=== PATIENT | female | born 1985 | race Caucasian/White ===

== ENCOUNTER → 2018-02-03 | Outpatient (CLI) | payer OTHER ==
[~2018-02-03] MED LIST: ALBU8.5H5 INH; ALLERGY PILL PO; ALPR1TAB2 PO; BETA15CR5 TP; CEPH-368 PO; CETI10CA PO; DIVA500T2 PO; FLUT1BLS INH; IBUP-1222 PO; LITH450T PO; MOME13HF INH; MUPI15CR TP; ONDA4TAB7 PO; PHEN37.53 PO; SUMA100T3 PO; TERB250T3 PO; TRIAMCINOLONE 0.1% TP
[2018-02-03 13:40] LABS: MICROSCOPIC NOT IND
[2018-02-03 13:44] LABS: BASOPHILS # (AUTO) 0.06 x10^3/uL (0-0.1); BASOPHILS % (AUTO) 0 % (0-1); EOSINOPHILS # (AUTO) 0.44 x10^3/uL (0-0.4); EOSINOPHILS % (AUTO) 3 % (1-7); LYMPHOCYTES # (AUTO) 3.45 x10^3/uL (1-3.4); LYMPHOCYTES % (AUTO) 25 % (22-44); MD NO; MEAN CORPUSCULAR HEMOGLOBIN 30.5 pg (27.0-34.8); MEAN CORPUSCULAR HGB CONC 33.8 g/dL (32.4-35.8); MEAN CORPUSCULAR VOLUME 90.2 fL (80-100); MEAN PLATELET VOLUME 8.7 fL (7.4-10.4); MONOCYTES # (AUTO) 1.28 x10^3/uL (0.2-0.8); MONOCYTES % (AUTO) 9 % (2-9); NEUTROPHILS # (AUTO) 8.78 x10^3/uL (1.8-6.8); NEUTROPHILS % (AUTO) 63 % (42-75); PLATELET COUNT 306 x10^3/uL (130-400); RED BLOOD COUNT 4.65 x10^6/uL (3.82-5.3); RED CELL DISTRIBUTION WIDTH 13.8 % (9.6-15.2)
[2018-02-03 13:46] LABS: CULTURE INDICATED? NO
== END | disposition home or self-care (01) ==
LOC: STAR 12:42
PROVIDERS: ATTEND Obstetrics & Gynecology Maternal & Fetal Medicine
DX: Z01.818 Encounter for other preprocedural examination (principal); R10.2 Pelvic and perineal pain
CPT/HCPCS: 36415; 81003; 84703; 85025

== ENCOUNTER 2018-02-16 13:13 | Day surgery (SDC) | payer OTHER ==
[~2018-02-16] VITALS: Ht 162.6 cm; Wt 117.6 kg
[~2018-02-16 13:13] MED LIST changes: +BUPIVACAINE 0.25% ONE; +EPINEPHRINE 1 MG/ML, 1ML ONE; +INDIGO CARMINE 0.8%, 5ML ONE; +KETOROLAC 30 MG/1 ML ONE; +SUCCINYLCHOLINE 20 MG/ML, 10ML ONE
[2018-02-16 13:51] VITALS: BP 120/86
[2018-02-16] MEDS ORDERED: LACTATED RINGERS 1,000 ML IV SCH (13:57)
[2018-02-16] MEDS ORDERED: NEOSPORIN OINT, 15GM ONE (14:06)
[2018-02-16] MEDS ORDERED: EPINEPHRINE 1 MG/ML, 1ML ONE (14:06)
[2018-02-16] MEDS ORDERED: BUPIVACAINE 0.25% ONE (14:06)
[2018-02-16 14:54] LABS: HCG UR SG 1.024 (1.003-1.030)
[2018-02-16] MEDS ORDERED: OXYcodone 5 MG/5 ML ORAL.SOL UDC PO PRN (15:30)
[2018-02-16] MEDS ORDERED: MIDAZOLAM 1 MG/ML, 2ML IV PRN (15:30)
[2018-02-16] MEDS ORDERED: SCOPOLAMINE PATCH, 1.5MG PATCH.TD72 TD PRN (15:30)
[2018-02-16] MEDS ORDERED: HYDROmorphone 1 MG/ML, 1ML IV PRN (15:30)
[2018-02-16] MEDS ORDERED: LABETALOL 5MG/ML, 20ML IV PRN (15:30)
[2018-02-16] MEDS ORDERED: ALBUTEROL/IPRATROPIUM 2.5MG/0.5MG, 3 ML NPPB PRN (15:30)
[2018-02-16] MEDS ORDERED: PROMETHAZINE 25 MG SUPP PR PRN (15:30)
[2018-02-16] MEDS ORDERED: ACETAMINOPHEN 325 MG TABLET PO PRN (15:30)
[2018-02-16] MEDS ORDERED: FENTANYL PF 100 MCG/2ML IV PRN (15:30)
[2018-02-16] MEDS ORDERED: FENTANYL PF 250 MCG/5ML ONE (15:36)
[2018-02-16] MEDS ORDERED: MIDAZOLAM 1 MG/ML, 2ML ONE (15:36)
[2018-02-16] MEDS ORDERED: SUGAMMADEX 200 MG/2 ML IVPush ONE (16:15)
[2018-02-16] MEDS ORDERED: CEFAZOLIN 1,000 MG ONE (16:17)
[2018-02-16] MEDS ORDERED: PROPOFOL 10 MG/ML, 20ML ONE (16:17)
[2018-02-16] MEDS ORDERED: SUCCINYLCHOLINE 20 MG/ML, 10ML ONE (16:17)
[2018-02-16] MEDS ORDERED: DEXAMETHASONE 4 MG/ML, 1ML ONE (16:17)
[2018-02-16] MEDS ORDERED: ONDANSETRON 2MG/ML, 2ML ONE (16:17)
[2018-02-16] MEDS ORDERED: ROCURONIUM 10MG/ML,5ML ONE (16:17)
== END 2018-02-16 18:15 | disposition home or self-care (01) ==
LOC: OR 13:13
PROVIDERS: ATTEND Obstetrics & Gynecology Maternal & Fetal Medicine
DX: L72.8 Other follicular cysts of the skin and subcutaneous tissue (principal); N73.9 Female pelvic inflammatory disease, unspecified; F32.9 Major depressive disorder, single episode, unspecified; J45.909 Unspecified asthma, uncomplicated; I10 Essential (primary) hypertension; I25.10 Atherosclerotic heart disease of native coronary artery without angina pectoris; Z88.1 Allergy status to other antibiotic agents
CPT/HCPCS: 49320; 81025; 87070; 87075; 87077; 87205; 88304; J0171; J0330; J0690; J1100; J1885; J2250; J2405; J2704; J3010; J3490; J7120

== ENCOUNTER → 2018-03-30 | Outpatient (CLI) | payer OTHER ==
[~2018-03-30] MED LIST changes: -BUPIVACAINE 0.25% ONE; -EPINEPHRINE 1 MG/ML, 1ML ONE; +ESCI10TA PO; -INDIGO CARMINE 0.8%, 5ML ONE; -KETOROLAC 30 MG/1 ML ONE; +RISP2TAB3 PO; -SUCCINYLCHOLINE 20 MG/ML, 10ML ONE
[2018-03-30 16:28] LABS: MICROSCOPIC INDICATED
[2018-03-30 16:34] LABS: MEAN CORPUSCULAR HEMOGLOBIN 30.3 pg (27.0-34.8); MEAN CORPUSCULAR HGB CONC 33.7 g/dL (32.4-35.8); MEAN PLATELET VOLUME 8.6 fL (7.4-10.4); PLATELET COUNT 295 x10^3/uL (130-400); RED BLOOD COUNT 4.28 x10^6/uL (3.82-5.3); RED CELL DISTRIBUTION WIDTH 13.9 % (9.6-15.2)
[2018-03-30 16:41] LABS: CULTURE INDICATED? NO
[2018-03-30 17:23] LABS: BASOPHILS # (AUTO) 0.04 x10^3/uL (0-0.1); BASOPHILS % (AUTO) 0 % (0-1); EOSINOPHILS # (AUTO) 0.32 x10^3/uL (0-0.4); EOSINOPHILS % (AUTO) 3 % (1-7); LYMPHOCYTES % (AUTO) 25 % (22-44); MD SCAN; MONOCYTES % (AUTO) 12 % (2-9); NEUTROPHILS # (AUTO) 7.92 x10^3/uL (1.8-6.8); NEUTROPHILS % (AUTO) 61 % (42-75)
== END | disposition home or self-care (01) ==
LOC: STAR 15:33
PROVIDERS: ATTEND Obstetrics & Gynecology Maternal & Fetal Medicine
DX: Z01.818 Encounter for other preprocedural examination (principal); N80.9 Endometriosis, unspecified; R10.2 Pelvic and perineal pain
CPT/HCPCS: 36415; 81001; 84146; 84443; 84703; 85025

== ENCOUNTER → 2020-03-06 | Outpatient (CLI) | payer OTHER | END | disposition home or self-care (01) | LOC: CARD 08:31 | PROVIDERS: ATTEND Nurse Practitioner Family | DX: G40.A09 Absence epileptic syndrome, not intractable, without status epilepticus (principal) | CPT/HCPCS: 95819 ==

== ENCOUNTER 2020-10-24 00:34 | Outpatient (CLI) | payer SELFPAY ==
[~2020-10-24] VITALS: Ht 162.6 cm; Wt 138.0 kg
[~2020-10-24 00:34] MED LIST changes: -ESCI10TA PO; +ESCI10TA97 PO; -RISP2TAB3 PO; +RISP2TAB80 PO
[2020-10-24 01:10] VITALS: BP 115/58
[2020-10-24 01:55] LABS: MICROSCOPIC INDICATED
[2020-10-24 02:22] LABS: AMPHETAMINE SCREEN, URINE Negative (Negative); BARBITURATE SCREEN, URINE Negative (Negative); BENZODIAZEPINE SCREEN, URINE Negative (Negative); CANNABINOID SCREEN, URINE Positive (Negative); COCAINE SCREEN, URINE Negative (Negative); METHADONE SCREEN, URINE Negative (Negative); OPIATE SCREEN, URINE Negative (Negative)
== END 2020-10-24 02:18 | disposition home or self-care (01) ==
LOC: LDOP 00:34
PROVIDERS: ATTEND Obstetrics & Gynecology Maternal & Fetal Medicine
DX: O62.9 Abnormality of forces of labor, unspecified (principal); Z3A.30 30 weeks gestation of pregnancy
CPT/HCPCS: 59025; 80307; 81001; 87086

== ENCOUNTER 2020-11-26 07:01 | Outpatient (CLI) | payer MEDICAID ==
[~2020-11-26] VITALS: Ht 157.5 cm; Wt 140.6 kg
[2020-11-26 07:58] VITALS: BP 138/84
== END 2020-11-26 09:20 | disposition home or self-care (01) ==
LOC: LDOP 07:01
PROVIDERS: ATTEND Obstetrics & Gynecology Maternal & Fetal Medicine
DX: O36.8130 Decreased fetal movements, third trimester, not applicable or unspecified (principal); Z3A.35 35 weeks gestation of pregnancy
CPT/HCPCS: 59025; 76819

== ENCOUNTER 2020-12-12 10:52 | Outpatient (CLI) | payer OTHER ==
[~2020-12-12] VITALS: Ht 162.6 cm; Wt 143.2 kg
[2020-12-12 11:22] VITALS: BP 117/64
[2020-12-12 11:36] LABS: AMPHETAMINE SCREEN, URINE Negative (Negative); BARBITURATE SCREEN, URINE Negative (Negative); BENZODIAZEPINE SCREEN, URINE Negative (Negative); CANNABINOID SCREEN, URINE Positive (Negative); COCAINE SCREEN, URINE Negative (Negative); METHADONE SCREEN, URINE Negative (Negative); OPIATE SCREEN, URINE Negative (Negative)
[2020-12-12 11:50] LABS: MICROSCOPIC INDICATED
== END 2020-12-12 13:13 | disposition home or self-care (01) ==
LOC: LDOP 10:52
PROVIDERS: ATTEND Obstetrics & Gynecology Maternal & Fetal Medicine
DX: O62.9 Abnormality of forces of labor, unspecified (principal); Z3A.37 37 weeks gestation of pregnancy; Z90.49 Acquired absence of other specified parts of digestive tract
CPT/HCPCS: 59025; 80307; 81001; 87086

== ENCOUNTER 2020-12-24 20:17 | Inpatient (IN) | payer OTHER ==
[~2020-12-24] VITALS: Ht 162.6 cm; Wt 143.2 kg
[2020-12-25] MEDS ORDERED: TERBUTALINE 1 MG/ML, 1ML IVPush PRN (15:30)
[2020-12-25] MEDS ORDERED: ALUMINUM/MAG/SIMETHICONE 30 ML UDC PO PRN (15:30)
[2020-12-25] MEDS ORDERED: PENICILLIN GK 5,000,000 UNITS in DEXTROSE 5% 100 ML IVPB ONE (15:30)
[2020-12-25] MEDS ORDERED: FENTANYL PF 100 MCG/2ML IV PRN (15:30)
[2020-12-25] MEDS ORDERED: ONDANSETRON 2MG/ML, 2ML IVPush PRN (15:30)
[2020-12-25] MEDS ORDERED: TERBUTALINE 1 MG/ML, 1ML SQ PRN (15:30)
[2020-12-25] MEDS ORDERED: OXYTOCIN 30U/ 0.9% NaCL 500ML 500 ML IV ONE (15:30)
[2020-12-25 15:46] LABS: BASOPHILS % (AUTO) 1 % (0-1); EOSINOPHILS % (AUTO) 1 % (1-7); LYMPHOCYTES % (AUTO) 12 % (22-44); MEAN CORPUSCULAR HEMOGLOBIN 28.4 pg (27.0-34.8); MEAN CORPUSCULAR HGB CONC 32.8 g/dL (32.4-35.8); MEAN PLATELET VOLUME 8.9 fL (7.4-10.4); MONOCYTES % (AUTO) 8 % (2-9); NEUTROPHILS % (AUTO) 79 % (42-75); PLATELET COUNT 296 x10^3/uL (130-400); RED BLOOD COUNT 4.05 x10^6/uL (3.82-5.3); RED CELL DISTRIBUTION WIDTH 14.7 % (9.6-15.2)
[2020-12-25] MEDS ORDERED: NEWBORN KIT ONE (16:57)
[2020-12-25 17:40] LABS: AMPHETAMINE SCREEN, URINE Negative (Negative); BARBITURATE SCREEN, URINE Negative (Negative); BENZODIAZEPINE SCREEN, URINE Negative (Negative); CANNABINOID SCREEN, URINE Positive (Negative); COCAINE SCREEN, URINE Negative (Negative); METHADONE SCREEN, URINE Negative (Negative); OPIATE SCREEN, URINE Negative (Negative)
[2020-12-25] MEDS ORDERED: MISOPROSTOL 25 MCG TABLET ONE (17:58)
[2020-12-25] MEDS ORDERED: MISOPROSTOL 25 MCG TABLET VG PRN (18:30)
[2020-12-25] MEDS: LACTATED RINGERS 1,000 ML IV SCH (22:40)
[2020-12-26] MEDS: FENTANYL PF 100 MCG/2ML IVPush PRN ×2 (01:46→02:51)
[2020-12-26] MEDS: PENICILLIN GK 2,500,000 UNITS in DEXTROSE 5% 100 ML IVPB SCH ×2 (03:15→08:14)
[2020-12-26] MEDS: LACTATED RINGERS 1,000 ML IV SCH (03:45)
[2020-12-26] MEDS ORDERED: FENTANYL/BUPIV./NS/PF 250 ML EPIDCONT ONE (04:42)
[2020-12-26] MEDS ORDERED: EPHEDRINE 50 MG/ML, 1ML IVPush PRN (05:30)
[2020-12-26] MEDS ORDERED: LACTATED RINGERS 1,000 ML IVBOLUS PRN (05:30)
[2020-12-26] MEDS ORDERED: NALOXONE 0.4 MG/ML, 1ML IVPush PRN (05:30)
[2020-12-26] MEDS ORDERED: LACTATED RINGERS 1,000 ML IV SCH (05:30)
[2020-12-26] MEDS ORDERED: FENTANYL/BUPIV./NS/PF 250 ML EPIDCONT SCH (05:30)
[2020-12-26 07:30] VITALS: BP 136/80
[2020-12-26] MEDS ORDERED: OXYTOCIN 30U/ 0.9% NaCL 500ML 500 ML IV PRN (09:30)
[2020-12-26] MEDS ORDERED: BUPIVACAINE 0.25% ONE (10:00)
[2020-12-26] MEDS: OXYTOCIN 30U/ 0.9% NaCL 500ML 500 ML IV SCH ×2 (11:50→13:00)
[2020-12-26] MEDS: IBUPROFEN 600 MG TABLET PO PRN ×2 (12:40→19:30)
[2020-12-26] MEDS ORDERED: IBUPROFEN 600 MG TABLET ONE (12:49)
[2020-12-26 13:09] LABS: ALANINE AMINOTRANSFERASE 22 U/L (12-78); ALBUMIN 2.3 g/dL (3.4-5.0); ANION GAP 6 mmol/L (5-15); CALCIUM 8.9 mg/dL (8.5-10.1); CHLORIDE 109 mmol/L (98-107)
[2020-12-26 13:11] LABS: ALKALINE PHOSPHATASE 154 U/L (45-117); BILIRUBIN,TOTAL 0.3 mg/dL (0.2-1.0); TOTAL PROTEIN 6.8 g/dL (6.4-8.2)
[2020-12-26 14:12] LABS: CREATININE,URINE RANDOM 79.1 mg/dL
[2020-12-26 14:30] VITALS: BP 139/82
[2020-12-26] MEDS ORDERED: CALCIUM CARBONATE 500 MG TAB.CHEW PO PRN (15:00)
[2020-12-26] MEDS ORDERED: SIMETHICONE 80 MG CHEW TAB PO PRN (15:00)
[2020-12-26] MEDS ORDERED: OXYcodone/APAP 5/325MG TABLET PO PRN ×2 (15:00)
[2020-12-26] MEDS ORDERED: MISOPROSTOL 200 MCG TABLET PR PRN (15:00)
[2020-12-26 19:20] VITALS: BP 111/72
[2020-12-26] MEDS: DOCUSATE 100 MG CAPSULE PO PRN (19:30)
[2020-12-26 20:31] LABS: MEAN CORPUSCULAR HEMOGLOBIN 28.7 pg (27.0-34.8); MEAN CORPUSCULAR HGB CONC 33.1 g/dL (32.4-35.8); MEAN PLATELET VOLUME 8.9 fL (7.4-10.4); PLATELET COUNT 247 x10^3/uL (130-400); RED CELL DISTRIBUTION WIDTH 14.6 % (9.6-15.2)
[2020-12-26 21:17] LABS: BAND#(MANUAL) 1.88 x10^3/uL; BANDS%(MANUAL) 8 % (0-7); LYMPH#(MANUAL) 2.59 x10^3/uL (1-3.4); LYMPHS% (MANUAL) 11 % (22-44); MONOS#(MANUAL) 1.41 x10^3/uL (0.3-2.7); MONOS% (MANUAL) 6 % (2-9); SEG#(MANUAL) 17.63 x10^3/uL (1.8-6.8); SEGS% (MANUAL) 75 % (42-75)
[2020-12-26 21:19] LABS: <PLATELET ESTIMATE> ADEQUATE; <PLT MORPHOLOGY> NORMAL PLT MORPH; <RBC MORPHOLOGY> NORMAL
[2020-12-27] VITALS: BP 125/71
[2020-12-27] MEDS: IBUPROFEN 600 MG TABLET PO PRN ×3 (02:20→19:45)
[2020-12-27 04:45] VITALS: BP 100/57
[2020-12-27 07:45] VITALS: BP 123/74
[2020-12-27] MEDS: PRENATAL VIT/IRON/FA 1 EACH TABLET PO SCH (07:53)
[2020-12-27] MEDS: DOCUSATE 100 MG CAPSULE PO PRN ×2 (07:53→19:45)
[2020-12-27] MEDS: OXYTOCIN 30U/ 0.9% NaCL 500ML 500 ML IV SCH ×2 (11:00→21:00)
[2020-12-27 12:10] VITALS: BP 127/83
[2020-12-27 16:30] VITALS: BP 124/72
[2020-12-27 20:10] VITALS: BP 137/84
[2020-12-28] MEDS: IBUPROFEN 600 MG TABLET PO PRN ×2 (05:05→11:22)
[2020-12-28 08:25] VITALS: BP 139/81
[2020-12-28] MEDS: PRENATAL VIT/IRON/FA 1 EACH TABLET PO SCH (11:22)
[2020-12-28] MEDS ORDERED: IBUP-1222 PO (15:35)
== END 2020-12-28 17:30 | disposition home or self-care (01) | DRG 807 ==
LOC: LDIP 12-25 13:49 → 2NW 12-26 14:15
PROVIDERS: ADMIT Obstetrics & Gynecology Maternal & Fetal Medicine; ATTEND Obstetrics & Gynecology Maternal & Fetal Medicine
PROC: 10E0XZZ Delivery of Products of Conception, External Approach (ICD-10-PCS; principal; 2020-12-26)
PROC: 0KQM0ZZ Repair Perineum Muscle, Open Approach (ICD-10-PCS; 2020-12-26)
PROC: 3E0R3BZ Introduction of Anesthetic Agent into Spinal Canal, Percutaneous Approach (ICD-10-PCS; 2020-12-26)
PROC: 00HU33Z Insertion of Infusion Device into Spinal Canal, Percutaneous Approach (ICD-10-PCS; 2020-12-26)
PROC: 0UQMXZZ Repair Vulva, External Approach (ICD-10-PCS; 2020-12-26)
DX: O14.04 Mild to moderate pre-eclampsia, complicating childbirth (principal); Z37.0 Single live birth; O99.214 Obesity complicating childbirth; E66.01 Morbid (severe) obesity due to excess calories; O99.824 Streptococcus B carrier state complicating childbirth; Z3A.39 39 weeks gestation of pregnancy; Z20.822 Contact with and (suspected) exposure to COVID-19; Z91.013 Allergy to seafood; Z88.2 Allergy status to sulfonamides; Z91.018 Allergy to other foods; O70.1 Second degree perineal laceration during delivery; O71.82 Other specified trauma to perineum and vulva
CPT/HCPCS: 36415; 80053; 80307; 82570; 84156; 85025; 86592; 86850; 86900; 87635; G0378; J2405; J2540; J3010; J2590; J7120

== ENCOUNTER 2021-01-02 09:23 | Outpatient (CLI) | payer OTHER ==
[~2021-01-02] VITALS: Ht 160 cm; Wt 137.0 kg
[2021-01-02 10:11] LABS: BASOPHILS % (AUTO) 1 % (0-1); EOSINOPHILS % (AUTO) 2 % (1-7); LYMPHOCYTES % (AUTO) 19 % (22-44); MEAN CORPUSCULAR HEMOGLOBIN 28.4 pg (27.0-34.8); MEAN PLATELET VOLUME 7.7 fL (7.4-10.4); MONOCYTES % (AUTO) 10 % (2-9); NEUTROPHILS % (AUTO) 68 % (42-75); PLATELET COUNT 383 x10^3/uL (130-400); RED BLOOD COUNT 3.66 x10^6/uL (3.82-5.3); RED CELL DISTRIBUTION WIDTH 14.7 % (9.6-15.2)
[2021-01-02 10:20] LABS: CREATININE,URINE RANDOM 47.1 mg/dL
[2021-01-02 10:22] LABS: CREATININE 0.74 mg/dL (0.55-1.02)
[2021-01-02 10:23] VITALS: BP 144/77
[2021-01-02 10:23] LABS: ALBUMIN 2.7 g/dL (3.4-5.0)
[2021-01-02 10:33] LABS: ALANINE AMINOTRANSFERASE 34 U/L (12-78); ALKALINE PHOSPHATASE 119 U/L (45-117); ANION GAP 6 mmol/L (5-15); BILIRUBIN,TOTAL 0.2 mg/dL (0.2-1.0); CHLORIDE 108 mmol/L (98-107)
== END 2021-01-02 11:10 | disposition home or self-care (01) ==
LOC: LDOP 09:23
PROVIDERS: ATTEND Obstetrics & Gynecology Maternal & Fetal Medicine
DX: O16.3 Unspecified maternal hypertension, third trimester (principal); O98.513 Other viral diseases complicating pregnancy, third trimester; Z3A.40 40 weeks gestation of pregnancy
CPT/HCPCS: 36415; 80053; 82570; 84156; 84550; 85025; 87635